=== PATIENT | male | born 1950 | race Caucasian/White ===

== ENCOUNTER 2018-03-28 13:34 | Emergency (ER) | payer MEDICARE, BC ==
[2018-03-28 14:02] VITALS: RESP 18; O2SAT 98
[2018-03-28 14:17] VITALS: TEMP 98.2
[2018-03-28 15:03] LABS: BASO # 0.03 K/mm3 (0.0-2.0); BASO % 0.4 % (0.0-3.0); EOS % 0.5 % (1.5-5.0); GRAN # 4.71 (1.4-6.5); GRAN % 64.6 % (50.0-68.0); HEMOGLOBIN 13.9 g/dL (14.0-18.0); LYMPH # 2.1 (1.2-3.4); LYMPH % 28.3 % (22.0-35.0); MEAN CELL VOLUME 86.6 fl (80.0-105.0); MEAN CORPUSCULAR HEMOGLOBIN 30.5 pg (25.0-35.0); MEAN CORPUSCULAR HGB CONC 35.2 g/dl (31.0-37.0); MEAN PLATELET VOLUME 10.2 fl (7.0-11.0); MONO # 0.5 (0.1-0.6); MONO % 6.2 % (1.0-6.0); RBC 4.56 10^6/uL (3.5-6.1); RED CELL DISTRIBUTION WIDTH 12.5 % (11.5-14.5); WHITE BLOOD COUNT 7.3 10^3/ul (4.5-11.0)
[2018-03-28 15:07] LABS: INR 1.09; PARTIAL THROMBOPLASTIN TIME 25.1 Seconds (25.1-36.5); PROTHROMBIN TIME 12.4 SECONDS (9.4-12.5)
[2018-03-28] MEDS ORDERED: DiphenhydrAMINE 50 mg/ml Inj IVP STA (15:09)
[2018-03-28 15:13] LABS: ALB/GLOB RATIO 1.4 (1.1-1.8); ALBUMIN 4.2 g/dL (3.0-4.8); ALT/SGPT 34 U/L (7-56); AST/SGOT 25 U/L (17-59); BLOOD UREA NITROGEN 14 mg/dL (7-21); CALCIUM 8.8 mg/dL (8.4-10.5); GFR NON-AFRICAN AMERICAN > 60
[2018-03-28 15:23] LABS: TROPONIN I < 0.01 ng/mL
[2018-03-28 16:24] VITALS: BP 118/65; PULSE 58
--- NOTE | 2018-03-28 16:29 | CT ---
Date of service: 03/28/2018 PROCEDURE: CT HEAD WITHOUT CONTRAST. HISTORY: headache COMPARISON: None available. TECHNIQUE: Axial computed tomography images were obtained through the head/brain without intravenous contrast. Radiation dose: Total exam DLP = 814 mGy-cm. This CT exam was performed using one or more of the following dose reduction techniques: Automated exposure control, adjustment of the mA and/or kV according to patient size, and/or use of iterative reconstruction technique. FINDINGS: HEMORRHAGE: No intracranial hemorrhage. BRAIN: No mass effect or edema. No atrophy or chronic microvascular ischemic changes. VENTRICLES: Unremarkable. No hydrocephalus. CALVARIUM: Unremarkable. PARANASAL SINUSES: Unremarkable as visualized. No significant inflammatory changes. MASTOID AIR CELLS: Unremarkable as visualized. No inflammatory changes. OTHER FINDINGS: None. IMPRESSION: No acute findings
--- NOTE | 2018-03-28 17:08 | ED PDOC ---
Arrival/HPI - General Historian: Patient - History of Present Illness Narrative History of Present Illness (Text): 03/28/18 17:03 67yo male with pmhx of anxiety who present with complaint of headache and chest pain x months. The daughter by the bedside states he was seen by his PMD 2days ago and was given Zoloft for the symptoms. the daughter states he took the medication yesterday and became nauseous and dizzy. The patient states the patient did not help. He is also on Xanax. He denies SOB, diaphoresis, focal weakness, dizziness, urinary symptoms, neck pain, LE edema, calf pain, any other complaint. <Sharee Sanabria A - Last Filed: 03/28/18 17:03> <Brian Campoverde - Last Filed: 04/04/18 05:37> - General Chief Complaint: Headache Time Seen by Provider: 03/28/18 14:25 Past Medical History - Provider Review Nursing Documentation Reviewed: Yes - Infectious Disease Hx of Infectious Diseases: None - Psychiatric Hx Substance Use: No - Anesthesia Hx Anesthesia: No Hx Anesthesia Reactions: No Hx Malignant Hyperthermia: No <Sharee Sanabria A - Last Filed: 03/28/18 17:03> Family/Social History - Physician Review Nursing Documentation Reviewed: Yes Family/Social History: Unknown Family HX Smoking Status: Former Smoker Hx Alcohol Use: No Hx Substance Use: No <Sharee Sanabria A - Last Filed: 03/28/18 17:03> Allergies/Home Meds <Sharee Sanabria A - Last Filed: 03/28/18 17:03> <Brian Campoverde - Last Filed: 04/04/18 05:37> Allergies/Adverse Reactions: Allergies No Known Allergies Allergy (Verified 03/28/18 14:02) Home Medications: Home Meds Medication Instructions Recorded Confirmed Bioflav,Lemon/Vit Bcomp,C 1 tab PO DAILY 03/28/18 03/28/18 [Lipo-Flavonoid Plus Caplet] RX: ALPRAZolam [Xanax] 0.5 mg PO TID 03/28/18 03/28/18 RX: Sertraline [Zoloft] 100 mg PO DAILY 03/28/18 03/28/18 Review of Systems - Physician Review All systems were reviewed & negative as marked: Yes - Review of Systems Constitutional: Normal Eyes: Normal ENT: Normal Respiratory: Normal Cardiovascular: Chest Pain Gastrointestinal: Normal Genitourinary Male: Normal Musculoskeletal: Normal Skin: Normal Neurological: Headache Endocrine: Normal Hemo/Lymphatic: Normal Psychiatric: Normal <Diru,Happiness A - Last Filed: 03/28/18 17:03> Physical Exam Vital Signs Reviewed: Yes Vital Signs Temp Pulse Resp BP Pulse Ox 03/28/18 16:24 58 L 18 118/65 98 03/28/18 15:28 59 L 18 121/69 98 03/28/18 14:16 98.2 F 57 L 18 125/74 98 03/28/18 13:59 97.5 F L 82 18 125/79 98 Temperature: Afebrile Blood Pressure: Normal Pulse: Regular Respiratory Rate: Normal Appearance: Positive for: Well-Appearing, Non-Toxic, Comfortable Pain Distress: None Mental Status: Positive for: Alert and Oriented X 3 - Systems Exam Head: Present: Atraumatic, Normocephalic Pupils: Present: PERRL Extroacular Muscles: Present: EOMI Conjunctiva: Present: Normal Mouth: Present: Moist Mucous Membranes Neck: Present: Normal Range of Motion Respiratory/Chest: Present: Clear to Auscultation, Good Air Exchange. No: Respiratory Distress, Accessory Muscle Use, Wheezes, Decreased Breath Sounds, Rales, Retracting Cardiovascular: Present: Regular Rate and Rhythm, Normal S1, S2. No: Murmurs Abdomen: No: Tenderness, Distention, Peritoneal Signs Back: Present: Normal Inspection Upper Extremity: Present: Normal Inspection. No: Cyanosis, Edema Lower Extremity: Present: Normal Inspection. No: Edema Neurological: Present: GCS=15, CN II-XII Intact, Speech Normal, Motor Func Grossly Intact, Normal Sensory Function, Normal Cerebellar Funct, Gait Normal, Memory Normal, Other (No focal neurological deficit) Skin: Present: Warm, Dry, Normal Color. No: Rashes Psychiatric: Present: Alert, Oriented x 3, Normal Insight, Normal Concentration <Diru,Happiness A - Last Filed: 03/28/18 17:03> Vital Signs Temp Pulse Resp BP Pulse Ox 03/28/18 16:24 58 L 18 118/65 98 03/28/18 15:28 59 L 18 121/69 98 03/28/18 14:16 98.2 F 57 L 18 125/74 98 03/28/18 13:59 97.5 F L 82 18 125/79 98 <Brian Campoverde - Last Filed: 04/04/18 05:37> Medical Decision Making ED Course and Treatment: 03/28/18 17:09 PT presented to ED for headache and chest pain x over a year. Pt was neurologically intact and hemodynamically stable in ED His headache was controlled in ED Labs was ordered and CE was wnl. EKG Sinus bady with PSVC Case was DW Dr. Obando and he noted that he referred pt to ENT, Neuro and pt have not seen these specialist. States he referred the pt to ED today for toponin and headache and if negative, pt should be DC home to f/u with his office tomorrow. Request that pt be DC home with Imitrex and advised to see him in the office today. All resutl and plan was DW both pt and the daughter and they agreed - Lab Interpretations Lab Results: 03/28/18 14:45 03/28/18 14:45 Lab Results 03/28/18 14:45: Sodium 139, Potassium 3.9, Chloride 105, Carbon Dioxide 26, Anion Gap 13, BUN 14, Creatinine 0.7 L, Est GFR ( Amer) > 60, Est GFR (Non-Af Amer) > 60, Random Glucose 144 H, Calcium 8.8, Magnesium 2.0, Total Bilirubin 0.8, AST 25, ALT 34, Alkaline Phosphatase 97, Lactate Dehydrogenase 389, Total Creatine Kinase 66, Troponin I < 0.01, Total Protein 7.2, Albumin 4.2, Globulin 3.0, Albumin/Globulin Ratio 1.4 03/28/18 14:45: PT 12.4, INR 1.09, APTT 25.1 03/28/18 14:45: WBC 7.3, RBC 4.56, Hgb 13.9 L, Hct 39.5 L, MCV 86.6, MCH 30.5, MCHC 35.2, RDW 12.5, Plt Count 197, MPV 10.2, Gran % 64.6, Lymph % (Auto) 28.3, Crisp % (Auto) 6.2 H, Eos % (Auto) 0.5 L, Baso % (Auto) 0.4, Gran # 4.71, Lymph # (Auto) 2.1, Crisp # (Auto) 0.5, Eos # (Auto) 0.0, Baso # (Auto) 0.03 - RAD Interpretation Radiology Orders: 03/28/18 14:30 HEAD W/O CONTRAST [CT] Stat - Medication Orders Current Medication Orders: Discontinued Medications Acetaminophen (Tylenol 325mg Tab) 650 mg PO STAT STA Stop: 03/28/18 15:10 Last Admin: 03/28/18 15:41 Dose: 650 mg MAR Pain/Vitals Document 03/28/18 15:41 EQ (Rec: 03/28/18 15:43 EQ [id number]) Pain Reassessment Is This A Pain ReAssessment? No Sleep Is patient sleeping during reassessment? No Presence of Pain Presence of Pain Yes Aspirin (Aspirin) 325 mg PO STAT STA Stop: 03/28/18 14:30 Last Admin: 03/28/18 14:40 Dose: 325 mg Metoclopramide HCl (Reglan) 10 mg IVP STAT STA Stop: 03/28/18 15:32 Last Admin: 03/28/18 15:41 Dose: 10 mg IVP Administration Document 03/28/18 15:41 EQ (Rec: 03/28/18 15:41 EQ [id number]) Charges for Administration # of IVP Administrations 1 <Sharee Sanabria - Last Filed: 03/28/18 17:03> ED Course and Treatment: 04/04/18 05:37 The documented history was done by the physician recovery room rn. The documented physical exam was done by the physician recovery room rn. The documented procedures were done by the physician recovery room rn, I was available for consultation during the PA/[employer] evaluation. The chart was reviewed by me, and I agree with the management and plan. - Lab Interpretations Lab Results: 03/28/18 14:45 03/28/18 14:45 Lab Results 03/28/18 14:45: Sodium 139, Potassium 3.9, Chloride 105, Carbon Dioxide 26, Anion Gap 13, BUN 14, Creatinine 0.7 L, Est GFR ( Amer) > 60, Est GFR (Non-Af Amer) > 60, Random Glucose 144 H, Calcium 8.8, Magnesium 2.0, Total Bilirubin 0.8, AST 25, ALT 34, Alkaline Phosphatase 97, Lactate Dehydrogenase 389, Total Creatine Kinase 66, Troponin I < 0.01, Total Protein 7.2, Albumin 4.2, Globulin 3.0, Albumin/Globulin Ratio 1.4 03/28/18 14:45: PT 12.4, INR 1.09, APTT 25.1 03/28/18 14:45: WBC 7.3, RBC 4.56, Hgb 13.9 L, Hct 39.5 L, MCV 86.6, MCH 30.5, M CHC 35.2, RDW 12.5, Plt Count 197, MPV 10.2, Gran % 64.6, Lymph % (Auto) 28.3, Crisp % (Auto) 6.2 H, Eos % (Auto) 0.5 L, Baso % (Auto) 0.4, Gran # 4.71, Lymph # (Auto) 2.1, Crisp # (Auto) 0.5, Eos # (Auto) 0.0, Baso # (Auto) 0.03 - RAD Interpretation Radiology Orders: 03/28/18 14:30 HEAD W/O CONTRAST [CT] Stat - Medication Orders Current Medication Orders: Discontinued Medications Acetaminophen (Tylenol 325mg Tab) 650 mg PO STAT STA Stop: 03/28/18 15:10 Last Admin: 03/28/18 15:41 Dose: 650 mg MAR Pain/Vitals Document 03/28/18 15:41 EQ (Rec: 03/28/18 15:43 EQ [id number]) Pain Reassessment Is This A Pain ReAssessment? No Sleep Is patient sleeping during reassessment? No Presence of Pain Presence of Pain Yes Aspirin (Aspirin) 325 mg PO STAT STA Stop: 03/28/18 14:30 Last Admin: 03/28/18 14:40 Dose: 325 mg Metoclopramide HCl (Reglan) 10 mg IVP STAT STA Stop: 03/28/18 15:32 Last Admin: 03/28/18 15:41 Dose: 10 mg IVP Administration Document 03/28/18 15:41 EQ (Rec: 03/28/18 15:41 EQ [id number]) Charges for Administration # of IVP Administrations 1 <Brian Campoverde - Last Filed: 04/04/18 05:37> Disposition/Present on Arrival - Present on Arrival Any Indicators Present on Arrival: No History of DVT/PE: No History of Uncontrolled Diabetes: No Urinary Catheter: No History of Decub. Ulcer: No History Surgical Site Infection Following: None - Disposition Have Diagnosis and Disposition been Completed?: Yes Disposition Time: 17:15 Patient Plan: Discharge <Sharee Sanabria - Last Filed: 03/28/18 17:03> <Brian Campoverde - Last Filed: 04/04/18 05:37> - Disposition Diagnosis: Headache, Chest pain Disposition: HOME/ ROUTINE Condition: STABLE Discharge Instructions (ExitCare): Headache, Adult, Chest Pain (ED) Additional Instructions: Follow up with your Doctor, Dr. Obando tomorrow Return to ED for any new or worsening symptoms Prescriptions: Sumatriptan Succinate [Imitrex] 50 mg PO BID #12 tablet Referrals: Topher GARCIA,Eddie Solano MD [Family Provider] - Follow up with primary Forms: [employer] ([employer])
--- NOTE | 2018-03-29 10:11 | CARD ---
APPROVED REPORT Date of service: 03/28/2018 EKG Measurement Heart [id number] <Conclusion> Sinus bradycardia with premature Ventricular complexes. Voltage Criteria for LVH.
== END 2018-03-28 17:32 | disposition home or self-care (01) ==
LOC: ED 13:34
DX: R51 Headache (principal); R07.9 Chest pain, unspecified
CPT/HCPCS: 70450; 80053; 82550; 83615; 83735; 84484; 85025; 85610; 85730; 93005; 96374; 99285; J2765

== ENCOUNTER 2018-07-17 06:08 | Day surgery (SDC) | payer MEDICARE, BC ==
[2018-07-10 12:22] VITALS: BMI 25.1
[2018-07-17] MEDS ORDERED: Lidocaine 2% Inj (20ml) ONE (07:16)
[2018-07-17] MEDS ORDERED: Iodixanol 320 MG/ML 200 ML BOTTLE IV ONE (07:17)
[2018-07-17] MEDS ORDERED: Iodixanol 320 MG/ML 100 ML BOTTLE IV ONE (07:17)
[2018-07-17] MEDS ORDERED: Iohexol 350mgl/ml 50 ML ONE (07:17)
[2018-07-17] MEDS ORDERED: Phenylephrine 10 mg/ml Inj ONE (07:18)
[2018-07-17] MEDS ORDERED: Nitroglycerin 50mg in D5W 0 MG/0 ML BOTTLE IV ONE (07:19)
[2018-07-17] MEDS ORDERED: Midazolam 2 MG/2 ML VIAL ONE ×2 (07:57→08:02)
[2018-07-17 08:56] VITALS: RESP 18; TEMP 98.1
--- NOTE | 2018-07-17 10:29 | CARDCATH ---
PROCEDURE DATE: 07/17/2018 CARDIAC CATHETERIZATION REPORT PROCEDURES: 1. Selective left to right coronary angiography. 2. Left ventriculography. 3. Right femoral arteriography. 4. Angio-Seal deployment. HISTORY: This is a 67-year-old man with a history of remote tobacco abuse and recent chest discomfort. He is evaluated with stress testing recently. With exercise he had EKG changes and chest pain; however, his nuclear scans were negative, given his uncertain cause of symptoms a cardiac catheterization was advised. INDICATIONS: Chest pain, questionable stress test. FINDINGS: HEMODYNAMICS: The aortic pressure was 140/70. Left ventricular pressure 140/15. CORONARY ANATOMY: 1. The left mainstem was normal. 2. The left anterior descending artery and its branches were normal as well. The caliber of the vessels was small to moderate size. 3. Left circumflex artery was also fairly small and of moderate size with no significant disease. 4. Right coronary artery was moderate in size and dominant. There was mild 20% to 30% lesions in the early mid portion of the vessel. LEFT VENTRICULOGRAPHY: A hand injection was performed in the left ventricle revealing a normal wall motion, the ejection fraction was 65%. There was no aortic valve gradient on catheter pullback. Mitral regurgitation was not assessed. CONCLUSION: 1. Mild right coronary artery disease. 2. Normal left ventricular systolic function. 3. Nonobstructive coronary artery disease, unlikely cause of chest pain. RECOMMENDATIONS: Given the above findings, risk factor control was advised. Workup of noncardiac causes of chest pain can be entertained. Andrea Joaquin MD cc: Eddie Obando MD
[2018-07-17 10:54] VITALS: PULSE 60; O2SAT 95
[2018-07-17 11:05] VITALS: BP 124/75
== END 2018-07-17 11:30 | disposition home or self-care (01) ==
LOC: CATH 06:08
PROVIDERS: ATTEND Internal Medicine Cardiovascular Disease
DX: I25.10 Atherosclerotic heart disease of native coronary artery without angina pectoris (principal); R07.89 Other chest pain; Z87.891 Personal history of nicotine dependence
CPT/HCPCS: 36415; 86850; 86900; 93458; 99152; C1760; C1769; C2629; J1644; J2250; J3010; Q9966